=== PATIENT | male | born 1975 | race Caucasian/White ===

== ENCOUNTER 2021-09-28 13:47 | Day surgery (SDC) | payer BC ==
[2021-09-28] MEDS ORDERED: Fentanyl 100 MCG/2 ML VIAL ONE (14:31)
[2021-09-28] MEDS ORDERED: ceFAZolin 2 GM/DEX 5% 100 ML BAG ONE (14:41)
[2021-09-28 14:53] LABS: SARS-CoV-2 NAA Rapid Test Not Detected (NotDetected)
[2021-09-28] MEDS ORDERED: PROPOFOL 200 MG/20 ML VIAL ONE (15:10)
[2021-09-28] MEDS ORDERED: Lidocaine 1% PF 5 ML VIAL ONE (15:10)
[2021-09-28] MEDS ORDERED: Lidocaine 1% w/Epinephrine 1:100K 20 ML VIAL ONE (15:20)
[2021-09-28] MEDS ORDERED: Bupivacaine PF 0.5% 30 ML VIAL ONE (15:20)
== END 2021-09-28 16:25 | disposition home or self-care (01) ==
LOC: SDC 13:47
PROVIDERS: ATTEND Orthopaedic Surgery
PROC: 0HQQXZZ Repair Finger Nail, External Approach (ICD-10-PCS; principal; 2021-09-28)
PROC: 0PBV0ZZ Excision of Left Finger Phalanx, Open Approach (ICD-10-PCS; principal; 2021-09-28)
DX: S62.635B Displaced fracture of distal phalanx of left ring finger, initial encounter for open fracture (principal); S67.195A Crushing injury of left ring finger, initial encounter; F17.210 Nicotine dependence, cigarettes, uncomplicated; Z20.822 Contact with and (suspected) exposure to COVID-19; W27.8XXA Contact with other nonpowered hand tool, initial encounter
CPT/HCPCS: J2704; J3010; S0020; U0002

== ENCOUNTER → 2021-09-28 | Day surgery (SDC) | payer BC | LOC: EDSTATUS 10:40 → SDC 13:26 → ERS 13:26 | DX: S62.635B Displaced fracture of distal phalanx of left ring finger, initial encounter for open fracture (principal) ==